=== PATIENT | male | born 1990 ===

== ENCOUNTER 2017-03-08 09:58 | Day surgery (SDC) | payer OTHER ==
[2017-03-08] MEDS ORDERED: ceFAZolin IV 1 gm in Dextrose 1 GM/50 ML BAG IVPB ONE (10:41)
[2017-03-08] MEDS ORDERED: Lidocaine 2% w Epi 1:100,000 Inj IJ ONE (10:42)
[2017-03-08] MEDS ORDERED: Bupivacaine HCl 0.5% PF (10 ml) Inj ONE (10:42)
[2017-03-08] MEDS ORDERED: Midazolam 2 MG/2 ML VIAL ONE (10:46)
[2017-03-08] MEDS ORDERED: Propofol 10 mg/ml Inj (20 ML) ONE ×2 (10:46→11:25)
[2017-03-08] MEDS: Bupivacaine HCl 0.5% PF (10 ml) Inj ONE ×2 (11:33→12:40)
[2017-03-08] MEDS: Bacitracin 500 Units/gm Oint Foilpak UD ONE ×2 (11:41→12:42)
[2017-03-08] MEDS ORDERED: HYDROmorphone 0.5 mg/0.5 ml ISec IVP PRN (12:59)
--- NOTE | 2017-03-08 13:00 | PCM.SURG1 ---
Surgeon's Initial Post Op Note - Surgeon's Notes Surgeon: Dr. Sol Culver Drywall Worker: Rosmery Langston, PGY3, Sheron Elmore, PGY2; Erick Chowdary, OMS3 Pre-Operative Diagnosis: Right hand dorsal tendon sheath ganglion cyst, carpal tunnel syndrome, cubital tunnel syndrome Operative Findings: see full operative report Post-Operative Diagnosis: same Operation Performed: Endoscopic right carpal tunnel release, open right cubital tunnel release, right hand dorsal tendon ganglion cyst removal Specimen/Specimens Removed: ganglion cyst, synovitis tissue Estimated Blood Loss: EBL {In ML}: 5 Date of Surgery/Procedure: 03/08/17 Time of Surgery/Procedure: 11:00
[2017-03-08] MEDS ORDERED: Oxycodone/Acetaminophen 5/325 mg Tab PO PRN (13:01)
[2017-03-08 15:51] VITALS: BP 133/80; PULSE 59; RESP 18; TEMP 97.6; O2SAT 98
== END 2017-03-08 15:12 | disposition home or self-care (01) ==
LOC: C.SDS 09:58
PROVIDERS: ATTEND Plastic Surgery Surgery of the Hand
DX: G56.01 Carpal tunnel syndrome, right upper limb (principal); G56.21 Lesion of ulnar nerve, right upper limb; M67.441 Ganglion, right hand
CPT/HCPCS: 26160; 29848; 64719; 88304; J0690; J2175; J2250; J2704; J3010